=== PATIENT | female | born 1970 | race American Indian/Alaskan Native ===

== ENCOUNTER 2016-09-24 07:26 | Outpatient (CLI) | payer OTHER ==
--- NOTE | 2016-09-24 10:08 | Mammography Report ---
Bilateral mammogram: No previous studies available. CAD study utilized. Findings: Predominance of adipose tissue bilaterally. Focal architectural distortion inner mid right breast. Focal circumscribed asymmetric density mid right breast. No microcalcification. Benign axillary nodes. Impression: Focal architectural distortion in the right breast and circumscribed asymmetric density mid right breast. Recommend comparison with previous studies. If previous studies are not available spot mag and sonographic examination advised.
== END 2016-09-24 07:27 | disposition home or self-care (01) ==
LOC: MAMMO 07:26
PROVIDERS: ATTEND Internal Medicine
DX: Z12.31 Encounter for screening mammogram for malignant neoplasm of breast (principal)
CPT/HCPCS: 77067; G0202

== ENCOUNTER 2018-04-13 08:04 | Outpatient (CLI) | payer OTHER ==
--- NOTE | 2018-04-13 08:46 | Mammography Report ---
BILATERAL DIGITAL DIAGNOSTIC MAMMOGRAM : 04/13/18 08:04:00 CLINICAL: Recalled for asymmetry. COMPARISON:02/03/18 screening FINDINGS: Additional spot magnification mammographic views of both breasts were performed and are negative.Satisfactory effacement of bilateral asymmetries. IMPRESSION: Negative Mammogram. BI-RADS CATEGORY: 1 -- Negative RECOMMENDATION: Routine mammographic screening in one year. ACR BI-RADS MAMMOGRAPHIC CODES: 0 = Needs additional imaging evaluation; 1 = Negative; 2 = Benign; 3 = Probably benign; 4 = Suspicious; 5 = Malignant; 6 = Known biopsy-proven malignancy COMMENT: 1. Dense breast tissue, i.e., adenosis, fibrocystic changes, etc., may obscure an underlying neoplasm. 2. Approximately 10% of cancers are not detected with mammography. 3. A negative mammography report should not delay biopsy if a clinically suspicious mass is present. COMMENT: Patient follow-up letters are generated via our [employer] application.
== END 2018-04-13 08:05 | disposition home or self-care (01) ==
LOC: MAMMO 08:04
PROVIDERS: ATTEND Internal Medicine
DX: R92.8 Other abnormal and inconclusive findings on diagnostic imaging of breast (principal)
CPT/HCPCS: 77066